=== PATIENT | male | born 1990 | race Caucasian/White ===

== ENCOUNTER 2016-06-22 18:05 | Emergency (ER) | payer MEDICAID ==
[~2016-06-22] VITALS: Ht 182.9 cm; Wt 92.5 kg
[2016-06-22 18:44] VITALS: BP 142/76
--- NOTE | 2016-06-22 20:16 | NUR ---
TO ER BED 1
--- NOTE | 2016-06-22 20:17 | NUR ---
25Y/M PATIENT PRESENT TO ED WITH C/O HEADACHE X 2 WEEKS, PT. STATES HE TOOK IBUPROFEN 800MG AT 1200 TODAYDENIES N/V/D; SKIN IS PINK/WARM/DRY; AAOX4 WITH EVEN AND STEADY GAIT; LUNGS CLEAR BL; HR EVEN AND REGULAR; PT DENIES ANY FEVER, CP, SOB, OR COUGH AT THIS TIME; PATIENT STATES PAIN OF 5/10 AT THIS TIME; VSS; PATIENT POSITIONED FOR COMFORT; HOB ELEVATED; BEDRAILS UP X2; BED DOWN. ER MD MADE AWARE OF PT STATUS.
--- NOTE | 2016-06-22 20:20 | NUR ---
Patient being evaluated by DR. DE at bedside.
[2016-06-22] MEDS ORDERED: ONDANSETRON 4 MG ODT PO ONE (20:35)
[2016-06-22] MEDS ORDERED: fentaNYL 0.05 MG/ML VIAL IM ONE (20:35)
--- NOTE | 2016-06-22 21:00 | NUR ---
Patient discharged with v/s stable. Written and verbal after care instructions given and explained. Patient alert, oriented and verbalized understanding of instructions. with steady gait. All questions addressed prior to discharge. ID band removed. Patient advised to follow up with PMD. Rx of MOTRIN 800 MG, TYLENOL NO.3 given. Patient educated on indication of medication including possible reaction and side effects. Opportunity to ask questions provided and answered.
[2016-06-22 21:12] VITALS: BP 135/80
== END 2016-06-22 21:00 | disposition home or self-care (01) ==
LOC: MED 18:05
PROC: BW28ZZZ Computerized Tomography (CT Scan) of Head (ICD-10-PCS; principal; 2016-06-22)
DX: G43.909 Migraine, unspecified, not intractable, without status migrainosus (principal); R03.0 Elevated blood-pressure reading, without diagnosis of hypertension
CPT/HCPCS: 70450; 99284; J3010; S0119

== ENCOUNTER 2016-10-18 22:29 | Emergency (ER) | payer SELFPAY ==
[~2016-10-18] VITALS: Ht 182.9 cm; Wt 85.7 kg
[2016-10-18 22:30] VITALS: BP 123/75
--- NOTE | 2016-10-19 00:01 | NUR ---
PT TAKEN TO OF3
--- NOTE | 2016-10-19 00:08 | NUR ---
PT BIB FAMILY C/O SORETHROAT, BODYACHES, CHILLS, FOR A WEEKS, LEFT EYE REDNESS, PAIN, ITCHINESS. PT DENIES ANY TRAUMA. PT DENIES N/V/D; SKIN IS INTACT, PINK/WARM/DRY; AAOX4, PERRL, WITH EVEN AND STEADY GAIT; LUNGS CLEAR BL, BREATHING UNLABORED; HR EVEN AND REGULAR, BL PERIPHERAL PULSES PRESENT; BS ACTIVE X4, NO TENDERNESS TO PALPATION. PT DENIES ANY FEVER, CP, SOB, OR COUGH AT THIS TIME; PT STATES 5/10 PAIN AT THIS TIME; VSS; PATIENT POSITIONED FOR COMFORT; HOB ELEVATED; BEDRAILS UP X2; BED DOWN.
--- NOTE | 2016-10-19 00:13 | NUR ---
PA STUDENT FELI EVALUATING PATIENT
--- NOTE | 2016-10-19 00:22 | NUR ---
Dr. Charles evaluating patient
[2016-10-19] MEDS ORDERED: KETOROLAC 30 MG/ML VIAL IM ONE (00:25)
--- NOTE | 2016-10-19 00:34 | NUR ---
IM MEDS GIVEN NADR AT THIS TIME
--- NOTE | 2016-10-19 00:44 | NUR ---
Patient discharged with v/s stable. Written and verbal after care instructions given and explained. Patient alert, oriented and verbalized understanding of instructions. Ambulatory with steady gait. All questions addressed prior to discharge. ID band removed. Patient advised to follow up with PMD. Rx of AUGMENTIN 875MG BID, NAPROSYN 500MG, TYLENOL WITH COD#3 given. Patient educated on indication of medication including possible reaction and side effects. Opportunity to ask questions provided and answered.
[2016-10-19 00:46] VITALS: BP 122/72
== END 2016-10-19 00:44 | disposition home or self-care (01) ==
LOC: MED 22:29
DX: H66.92 Otitis media, unspecified, left ear (principal); J02.9 Acute pharyngitis, unspecified
CPT/HCPCS: 96372; 99283; J1885